=== PATIENT | male | born 1945 | race Caucasian/White ===

== ENCOUNTER 2016-10-26 10:59 | Outpatient (CLI) | payer MEDICARE, BC | END 2016-10-26 11:00 | disposition home or self-care (01) | DX: R97.20 Elevated prostate specific antigen [PSA] (principal); E78.5 Hyperlipidemia, unspecified; I10 Essential (primary) hypertension; Z79.899 Other long term (current) drug therapy ==

== ENCOUNTER 2017-05-11 14:09 | Outpatient (CLI) | payer MEDICARE, BC ==
[2017-05-11 18:54] LABS: PSA FREE 0.367 ng/mL (0.16-2.81); PSA TOTAL 4.319 ng/mL (0.000-2.000)
== END 2017-05-11 14:10 | disposition home or self-care (01) ==
LOC: LAB.F 14:09
PROVIDERS: ATTEND Internal Medicine
DX: R97.20 Elevated prostate specific antigen [PSA] (principal)
CPT/HCPCS: 36415; 84154